=== PATIENT | male | born 1995 | race African-American/Black ===

== ENCOUNTER 2020-04-24 16:40 | Emergency (ER) | payer SELFPAY ==
[~2020-04-24] VITALS: Ht 180.3 cm; Wt 63.3 kg
--- NOTE | 2020-04-24 17:01 | NUR ---
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
--- NOTE | 2020-04-24 17:45 | NUR ---
PILLOW AND BLANKETS PROVIDED.
[2020-04-24] MEDS ORDERED: LIDOCAINE-MPF 1%, 5ML ONE (18:29)
[2020-04-24] MEDS ORDERED: LIDOCAINE-MPF 1%, 5ML INFIL ONE (18:30)
--- NOTE | 2020-04-24 18:34 | NUR ---
LIDO AT BEDSIDE. PT RESTING COMFORTABLY TALKING ON PHONE.
[2020-04-24] MEDS ORDERED: HYDROcodone/APAP 5/325 TABLET ONE (19:04)
--- NOTE | 2020-04-24 19:07 | NUR ---
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 PT RESTING ON [place] TALKING ON PHONE. NADN. REPORT BACK TO PRIMARY RN.
[2020-04-24] MEDS ORDERED: HYDROcodone/APAP 5/325 TABLET PO ONE (19:30)
[2020-04-24 19:32] VITALS: BP 106/82
--- NOTE | 2020-04-24 19:33 | NUR ---
EDP AT BEDSIDE FOR I&D.
== END 2020-04-24 20:17 | disposition home or self-care (01) ==
LOC: ED 17:30
DX: L02.31 Cutaneous abscess of buttock (principal)
CPT/HCPCS: 10060; 76857; 99284